=== PATIENT | female | born 1985 ===

== ENCOUNTER 2021-08-17 14:45 | Inpatient (IN) | payer OTHER ==
[~2021-08-17] VITALS: Ht 149.9 cm; Wt 3.6 kg
[2021-09-08] MEDS ORDERED: ECOTRIN81 MG PO (04:05)
[2021-09-08] MEDS ORDERED: PRENATAL CAPLE1 EAC1 PO (04:05)
== END 2021-09-13 17:13 | disposition home or self-care (01) | DRG 787 ==
LOC: OB/GYN 09-08 04:03 → LDR 09-08 04:03 → OB/GYN 09-08 20:28 → SURH 09-13 14:45 → OB/GYN 09-13 14:45
PROVIDERS: ADMIT Student in an Organized Health Care Education/Training Program; ATTEND Student in an Organized Health Care Education/Training Program
PROC: 3E033VJ Introduction of Other Hormone into Peripheral Vein, Percutaneous Approach (ICD-10-PCS; 2021-09-08)
PROC: 4A1HXFZ Monitoring of Products of Conception, Cardiac Rhythm, External Approach (ICD-10-PCS; 2021-09-08)
PROC: 10D00Z1 Extraction of Products of Conception, Low, Open Approach (ICD-10-PCS; principal; 2021-09-08 17:00)
DX: O62.1 Secondary uterine inertia (principal); O90.81 Anemia of the puerperium; D62 Acute posthemorrhagic anemia; O42.02 Full-term premature rupture of membranes, onset of labor within 24 hours of rupture; Z37.0 Single live birth; Z3A.39 39 weeks gestation of pregnancy